=== PATIENT | male | born 2000 | race Caucasian/White ===

== ENCOUNTER → 2025-04-10 | Outpatient (CLI) | payer BC, SELFPAY ==
[2025-04-10 16:08] LABS: Hematocrit 43.2 % (40-54); Hemoglobin 14.9 g/dL (13.0-16.5); Immature Granulocytes Count 0.020 X10^3/uL (0.0-0.0); Mean Corp Hgb Conc 34.5 g/dL (32-36); Mean Corpuscular Volume 83.9 fL (80-94); Mean Platelet Vol. 9.6 fl (6.2-12.0); NRBC Flagged by Analyzer 0 % (0-5); Platelet Count 424 K/mm3 (150-450); RBC Distribution Width CV 12.0 % (11.6-14.6); RBC Distribution Width SD 36.4 fl (35.1-43.9); Red Blood Count 5.15 M/mm3 (4.6-6.2); White Blood Count 9.0 K/mm3 (4.4-11.0)
== END | disposition home or self-care (01) ==
LOC: LABSPEC 15:01
PROVIDERS: Referring Provider Nurse Practitioner Family; Visit Provider Nurse Practitioner Family
DX: A69.20 Lyme disease, unspecified (principal); R63.4 Abnormal weight loss; R50.9 Fever, unspecified; R53.82 Chronic fatigue, unspecified; R61 Generalized hyperhidrosis; R53.1 Weakness; H93.19 Tinnitus, unspecified ear; M54.2 Cervicalgia; I10 Essential (primary) hypertension; R00.2 Palpitations; J45.909 Unspecified asthma, uncomplicated; R10.9 Unspecified abdominal pain; R19.7 Diarrhea, unspecified; R39.9 Unspecified symptoms and signs involving the genitourinary system; F32.A Depression, unspecified; R45.4 Irritability and anger; R51.9 Headache, unspecified
CPT/HCPCS: 85025